=== PATIENT | male | born 1980 | race Caucasian/White ===

== ENCOUNTER 2020-08-25 16:16 | Outpatient (CLI) | payer OTHER, SELFPAY | END 2020-08-25 16:17 | disposition home or self-care (01) | LOC: ANHCOVIDVC 16:16 | PROVIDERS: PCP Family Medicine | DX: Z23 Encounter for immunization (principal) | CPT/HCPCS: 0001A; 91300 ==

== ENCOUNTER 2020-09-15 16:04 | Outpatient (CLI) | payer OTHER, SELFPAY | END 2020-09-15 16:05 | disposition home or self-care (01) | LOC: ANHCOVIDVC 16:04 | PROVIDERS: PCP Family Medicine | DX: Z23 Encounter for immunization (principal) | CPT/HCPCS: 0002A; 91300 ==

== ENCOUNTER 2023-12-10 08:44 | Day surgery (SDC) | payer OTHER, SELFPAY ==
[2023-10-28 13:36] VITALS: BMI 36.6
[2023-12-04 08:30] VITALS: BMI 34.7
--- NOTE | 2023-12-09 15:27 | WPDANESEPPF ---
Anes - Initial Pre Proc Eval Procedure: Operation Date: 12/10/23 10:30 Proposed Procedures p Screening Colonoscopy - Meliton Way MD Date/Time: 12/09/23 15:27 Surgeon: Meliton Way MD Pre Op Diagnosis: Screening for neoplasm of colon Patient Data Age: 43 Gender: M Height: 1.93 m Weight: 129.5 kg Allergies Allergy/AdvReac Type Severity Reaction Status Date / Time No Known Allergies Allergy Mild Verified 12/10/23 09:31 Home Medications Medication Instructions Recorded Confirmed Type hydroxyzine HCl 25 mg tablet 25 mg PO TID PRN anxiety #30 tabs 10/17/23 12/10/23 Rx paroxetine HCl 40 mg tablet 40 mg PO BID #180 tabs 10/17/23 12/10/23 Rx allopurinol 300 mg tablet 300 mg PO DAILY 12/04/23 12/10/23 History Patient hx anesthesia problems: none Family hx anesthesia problems: none Results Review: All pre-operative results and documents have been reviewed as part of the pre-operative evaluation. [facility] Past Medical History Medical History Benign hypertension Bilateral impacted cerumen Elevated liver enzymes Hyperlipidemia Family History Family History Father Hypertension Family history of cardiovascular disease Mother Hypertension Family history of malignant neoplasm of breast in first degree relative Social History Social History Social History: Caffeine-soda/tea Smoking status: Never smoker Second hand tobacco smoke exposure: No Alcohol intake: current Alcohol use details: occasional Substance use: never Substance use type: does not use Lack of Transportation: No Lack of Food: Never True Current Housing: I Have Housing Concerned About Future Housing: No Difficulty Paying Gas/Electric Bills: No Difficulty Paying for Meds: No Currently Unemployed: No Education: Master's Degree or Higher Living arrangements: with family Spiritual care concerns: No Anes - Eval Final PreProcedure Day of Procedure 12/09/23 15:27 Patient weight: obese Heart: regular rate and rhythm Lungs: clear to auscultation Airway: Mallampati scale class II Neurological: alert and oriented Last oral intake: >/= 8 hours ASA classification: III Emergent: no Anesthetic plan: proceed Anesthesia type and monitoring: general GIVS and standard monitoring Results Review: All pre-operative results and documents have been reviewed as part of the pre-operative evaluation. Informed Consent: The patient's anesthetic plan and its attendant risks and benefits were discussed with the patient/family/POA. Questions were solicited and answers provided to the satisfaction of the patient/family/POA.
--- NOTE | 2023-12-09 21:02 | P.HP_ITS ---
History of Present Illness History of Present Illness Consent: Risks, benefits, and alternatives have been discussed and questions answered. Patient agrees to proceed with procedure. Chief complaint: Screening for neoplasm of colon Narrative: Kai Bonilla is a 43 year old male who is referred for colon cancer screening. Review of Systems Review of Systems: All systems reviewed & are unremarkable except as noted in HPI and below PMFSH Past Medical History Medical History Benign hypertension Bilateral impacted cerumen Elevated liver enzymes Hyperlipidemia Family History Family History Father Hypertension Family history of cardiovascular disease Mother Hypertension Family history of malignant neoplasm of breast in first degree relative Social History Social History Social History: Caffeine-soda/tea Smoking status: Never smoker Second hand tobacco smoke exposure: No Alcohol intake: current Alcohol use details: occasional Substance use: never Substance use type: does not use Lack of Transportation: No Lack of Food: Never True Current Housing: I Have Housing Concerned About Future Housing: No Difficulty Paying Gas/Electric Bills: No Difficulty Paying for Meds: No Currently Unemployed: No Education: Master's Degree or Higher Living arrangements: with family Spiritual care concerns: No Meds Home Medications and Allergies Home Medications Medication Instructions Recorded Confirmed Type hydroxyzine HCl 25 mg tablet 25 mg PO TID PRN anxiety #30 tabs 10/17/23 12/10/23 Rx paroxetine HCl 40 mg tablet 40 mg PO BID #180 tabs 10/17/23 12/10/23 Rx allopurinol 300 mg tablet 300 mg PO DAILY 12/04/23 12/10/23 History Allergies Allergy/AdvReac Type Severity Reaction Status Date / Time No Known Allergies Allergy Mild Verified 12/10/23 09:31 Exam Resp: Auscultation: clear to auscultation bilaterally Cardio: Rate: regular rate Rhythm: regular rhythm GI: GI Palp: Yes Soft to palpation and No Tenderness to palpation present (GI) Assessment and Plan Assessment and plan (1) Colon cancer screening: Code(s): Z12.11 - Encounter for screening for malignant neoplasm of colon Status: Acute Assessment and Plan: Colonoscopy with possible biopsy or polypectomy or cautery or injection of subs tances.
[2023-12-10 09:40] VITALS: BP 130/82; PULSE 57; RESP 18; TEMP 36.6; O2SAT 100; BMI 34.0
[2023-12-10] MEDS: LACTATED RINGERS 1,000 ML 150 ML IV CONT (09:50)
[2023-12-10 10:35] VITALS: BP 114/78; PULSE 57; RESP 15; O2SAT 99
[2023-12-10 10:45] VITALS: BP 127/84; PULSE 55; RESP 16; O2SAT 100
[2023-12-10 10:55] VITALS: BP 120/85; PULSE 50; RESP 18; O2SAT 100
--- NOTE | 2023-12-10 11:58 | WPDANESPN ---
Anes - Prog Note Post-Op Date/Time: 12/10/23 11:58 Cardiovascular status: normal Respiratory status: normal Airway patency: baseline Mental status: baseline Post-Op hydration status: normal Vital Signs: Last Vital Signs Temp 36.6 C 12/10/23 09:40 Pulse 50 L 12/10/23 10:55 Resp 18 12/10/23 10:55 BP 120/85 12/10/23 10:55 Pulse Ox 100 12/10/23 10:55 O2 Del Method Room Air 12/10/23 10:55 Pain Score (VAS): 0 I/O: Intake & Output 12/09/23 12/10/23 12/10/23 23:59 07:59 15:59 Intake Total 400 Balance 400 Post-procedural complaints: none Patient Feedback: Patient satisfied with anesthetic care. Other Findings: Patient vital signs back to baseline. Patient denies nausea and vomiting. Patient's pain under control. Patient OK for discharge.
== END 2023-12-10 11:05 | disposition home or self-care (01) ==
PROVIDERS: PCP Family Medicine; Visit Provider Internal Medicine Gastroenterology
PROC: 0DJD8ZZ Inspection of Lower Intestinal Tract, Via Natural or Artificial Opening Endoscopic (ICD-10-PCS; CPT 45378; principal; 2023-12-10 10:30)
DX: Z12.11 Encounter for screening for malignant neoplasm of colon (principal); D12.5 Benign neoplasm of sigmoid colon
CPT/HCPCS: 45385

== ENCOUNTER 2023-12-11 09:39 | Outpatient (NON) | payer OTHER, SELFPAY | END 2023-12-11 09:40 | disposition home or self-care (01) | LOC: ANHLAB 09:40 | PROVIDERS: PCP Family Medicine; Visit Provider Internal Medicine Gastroenterology | DX: Z12.11 Encounter for screening for malignant neoplasm of colon (principal); D12.5 Benign neoplasm of sigmoid colon | CPT/HCPCS: 88305 ==

== ENCOUNTER 2024-12-01 08:10 | Outpatient (CLI) | payer OTHER, SELFPAY ==
--- OUTSIDE RECORDS SUMMARY | 2024-12-01 08:13 | XMS_ITS | Continuity of Care Document ---
Author Organization [facility] Address [address] [place] [address] Phone Care Team Providers Care Community Nurse Name Role Phone Todd Valenzuela MD Unavailable Unavailable Medications Medication Instructions Dosage Effective Dates (start - stop) Status Comments Mobic 15 mg tablet take 1 tablet by oral route every day - Active Mobic 15 mg tablet take 1 tablet by oral route every day - No Longer Active Advance Directives Directive Yes / No Effective Date File Name No Information Encounters Encounter Description Practice Location Reason(s) For Visit Diagnoses Date Provider Providers Copied on Encounter [facility] , [address] [facility], [place], [address], tel:[phone] [facility] [place] No Information 0 Bianca Brooks. [address] [place], [place], [id number] . tel:[phone] [facility] , [address], [place], [address], [place] tel:[phone] [facility] [place] Pain in right handRight hand tendonitis 0 Bianca Brooks. [address], [place], [id number] . tel:[phone] Family History Family Member Type Diagnosis Age At Onset No Information Payers Payer name Insurance type Covered green party ID Authoriza tion(s) No Information Social History Type Description Quantity Date Captured Comments Sex Male Smoking Status No Information Chief Complaint And Reason For Visit No Information Reason For Referral Reason For Referral No Information History Of Present Illness Encounter Date Complaint History Of Prese nt Illness No Information Functional Status Date Functional Assessmen t No Information Instructions Date Instruction Additional Infor mation No Information Assessments Type Assessment Date No Information Patient Care Teams Name Effective Dates (start - stop) Status Members No Information
--- OUTSIDE RECORDS SUMMARY | 2024-12-01 08:13 | XMS_ITS | Clinical Summary ---
Author Organization [facility] Address [address] [place] [address] Care Team Providers Care Dean Name Role Phone Unavailable Primary Care Provider Unavailabl e Source Comments [facility],non-owned Affiliates and Associated Physician Practices is amultiple site organization consisting of ambulatory clinics and hospital sitesin [place], [place], [place] and [place]. This disclosure is being madepursuant to the Care Everywhere program and may not contain all information available regarding this patient. Last updated 18.[facility] Allergies No known active allergies Social History Tobacco Use Types Packs/Day Years Used Date Smoking Tobacco: Never Assessed AUDIT-C Answer Date Recorded Q1: How often do you have a drink containing alc ohol? Monthly or less 08/02/2024 Q2: How many drinks containi ng alcohol do you have on a typical day when you are drinking? 1 or 2 08/02/2024 Q3: How often do you have si x or more drinks on one occasion? 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 Gender Identity Not on file Sexual Orientation Not on file Last Filed Vital Signs Vital Sign Reading Time Taken Comments Blood Pressure 103/61 08/02/2024 8:01 AM SENIOR CYTOTECHNOLOGIST Pulse 66 08/02/2024 8:01 AM SENIOR CYTOTECHNOLOGIST Temperature 36.4 C (97.6 F) 08/02/2024 3:25 AM SENIOR CYTOTECHNOLOGIST Respiratory Rate 14 08/02/2024 8:01 AM SENIOR CYTOTECHNOLOGIST Oxygen Saturation 93% 08/02/2024 8:01 AM SENIOR CYTOTECHNOLOGIST Inhaled Oxygen Concentration - - Weight 129.3 kg (285 lb) 08/02/2024 3:25 AM SENIOR CYTOTECHNOLOGIST Height 193 cm (6' 4) 08/02/2024 3:25 AM SENIOR CYTOTECHNOLOGIST Body Mass Index 34.69 08/02/2024 3:25 AM SENIOR CYTOTECHNOLOGIST Plan of Treatment Health Maintenance Due Date Last Done Comments COLOGUARD (AGES 45-75) - COL ON CA SCREENING 1978 COLON MONITORING 1978 COLONOSCOPY - COLON CA SCREENING 1978 CT COLONOGRAPHY - COLON CA SCREENING 1978 Colorectal Cancer Screening 1978 FIT - COLON CA SCREENING 1978 FLEX SIG - COLON CA SCREENING 1978 LIPID TESTING 1978 HIV SCREENING 1993 HEPATITIS C SCREENING 09/04/1996 DTAP/TDAP/TD VACCINES (1 - Tdap) 1997 HEPATITIS B VACCINE (1 of 3 - 19+ 3-dose series) 1997 COVID-19 VACCINE (1 - 2023-2 5 season) 2024 DEPRESSION SCREENING 06/24/2024 INFLUENZA VACCINE (Season Ended) 2025 ZOSTER VACCINE (1 of 2) 2028 HIB VACCINE Aged Out No longer eligi ble based on patient's age to complete this topic HPV VACCINE Aged Out No longer eligi ble based on patient's age to complete this topic MENINGOCOCCAL (Group B) VACC INE SHARED DECISION-MAKING Aged Out No longer eligibl e based on patient's age to complete this topic MENINGOCOCCAL GROUPS A/C/Y/W VACCINE Aged Out No longer eligible b ased on patient's age to complete this topic PNEUMOCOCCAL VACCINE Aged Out No long er eligible based on patient's age to complete this [place] [place] [address] [facility] [employer] * Guarantor: KAI NORTH Account Type Relation to Patient Date of Phone Billing Address Personal/Family [address] [place] [address] [place] [address] [facility] SELF PAY NO INSURANCE Member Subscriber Plan / Payer (Ef fective for All Dates) Name:Kai North Member ID:Not on file Relation to Subscriber:Not on file Name:KAI NORTH Subscriber ID:Not on file Address: [address] [place] [address] [place] [address] Payer ID:Not on file Group ID:Not on file Type:Self Pay Address: [place], [place] * Guarantor: KAI NORTH Account Type Relation to Patient Date of Phone Billing Address Personal/Family [address] [place] [address] [employer] SELF PAY NO INSURANCE Member Subscriber Plan / Payer (Ef fective for All Dates) Name:Rubingil Kai Thanh Member ID:Not on file Relation to Subscriber:Not on file Name:KAI NORTH Subscriber ID:Not on file Address: [address] [place] [address] [place] [address] Payer ID:Not on file Group ID:Not on file Type:Self Pay Address: [place], [place] [address] [employer]ability [facility]
[2024-12-22 14:45] VITALS: BMI 34.0
--- NOTE | 2024-12-22 14:45 | WPDHOMESLEEP ---
Sleep Study - Home Unattended Date of Study: 12/01/24 Ordering Provider: Willie Finn MD Interpreting Provider: Sheri Harding, DO Home Sleep Study Type: Watch PAT Height: 1.93 m Weight: 127.006 kg Body Mass Index: 34.0 Neck Circumference (inches): 20 [place]: 7 Reason for Sleep Study snoring, daytime hypersomnia Sleep History The patient is a 44-year-old male who had a sleep study ordered by his primary care physician for evaluation of sleep apnea. The patient admits to snoring loudly, excessive daytime sleepiness, interruptions in breathing while asleep, and difficulty falling asleep. He denies choking or gasping at night. He does have trouble breathing on his back. He denies morning headaches. He denies having a dry or sore mouth/throat in the morning. He denies nocturnal heartburn. He urinates twice throughout the night. He denies having difficulty staying asleep. He denies having difficulty returning to sleep if he wakes up throughout the night. He does use a hypnotic or sedative. He does feel anxious about sleep. He does feel tired or sleepy during the day. He does feel tired in the morning. He does have the urge to fall asleep during the day. He denies feeling drowsy while driving. He denies sleep paralysis, cataplexy, and hypnagogic/hypnopompic hallucinations. He does clench or grind his teeth. He denies kicking or jerking his legs excessively. He denies having a restless feeling in his legs. He goes to bed at 11:30 p.m. on workdays and at 1:30 a.m. on his days off. It takes him 30 minutes to fall asleep on workdays and 15 minutes on his days off. He gets 6 hours of sleep on workdays and 8 hours on his days off. His sleep is somewhat restorative on his days off. He denies taking any planned naps. He denies dream enactment behavior. He denies sleepwalking. He consumes 1 to 2 cups of a caffeinated beverage per day. He denies tobacco and alcohol use. He exercises 3 to 4 nights per week. [facility] Past Medical History Medical History Elevated liver enzymes Bilateral impacted cerumen Benign hypertension Hyperlipidemia Family History Family History Father Hypertension Family history of cardiovascular disease Mother Hypertension Family history of malignant neoplasm of breast in first degree relative Social History Social History Social History: Caffeine-soda/tea Smoking status: Never smoker Second hand tobacco smoke exposure: No Alcohol intake: current Alcohol use details: occasional Substance use: never Substance use type: does not use Lack of Transportation: No Lack of Food: Never True Current Housing: I Have Housing Concerned About Future Housing: No Difficulty Paying Gas/Electric Bills: No Difficulty Paying for Meds: No Currently Unemployed: No Education: Master's Degree or Higher Living arrangements: with family Spiritual care concerns: No Medications Home Medications ?Medication ?Instructions ?Recorded ?Confirmed ?Type hydroxyzine HCl 25 mg tablet 25 mg PO TID PRN anxiety #30 tabs 10/17/23 12/08/24 Rx allopurinol 300 mg tablet See Rx Instructions .Route 09/07/24 12/08/24 Rx .COMPLEX #90 tabs bupropion HCl 150 mg 24 hr tablet, 150 mg PO QAM #90 tabs 10/21/24 12/08/24 Rx extended release (Wellbutrin XL) paroxetine HCl 40 mg tablet 40 mg PO BID #180 tabs 11/10/24 12/08/24 Rx naproxen 500 mg tablet 500 mg PO BID #60 tabs 12/15/24 Rx Sleep Procedure The sleep study was completed using DoctorCT a technically adequate device with seven channels: peripheral arterial tone, actigraphy, body position, snore, respiratory movement, pulse oximetry, sleep staging, and heart rate. Prior to using the device, the patient received verbal and written instructions for its application and was provided with the help desk phone number for additional telephonic instruction with 24-hour availability of qualified personnel to answer questions. The study was scored using CMS guidelines. Sleep Architecture The total recording time is 7 hrs, 27 min. The total sleep time is 6 hrs, 47 min. Sleep latency is 24 minutes. REM latency is 92 minutes. The patient had 7 episodes of waking. Sleep architecture shows 10.0% deep sleep, 69.8% light sleep, and (as % Total Sleep Time) showed NREM (Light 69.8%; Deep 10.0%), and a 20.3% stage REM. The patient spent 58.0% of total sleep time in the supine position. Sleep efficiency was 91.05. Respiratory Analysis The overall AHI (pAHI 4%:) is 15.6. The overall AHI (pAHI 3%:) is 26.0. The central AHI is 2.6. The AHI was 26.3 in NREM and 24.7 in REM sleep. The AHI was 24.0 in Supine and 28.6 in Non-supine sleep. Percent of Samir Arambula respirations is 0.0. Oximetry Data The oxygen desaturation index (CARMEN 4%:) is 15.6. The mean saturation is 95%, and the lowest saturation is 88%. Time spent with saturation < 88% is 0.1 minutes. Snoring Profile Snoring average intensity is 44 dB. The patient snored above 45 decibels for 106.6 minutes, 26.2% of sleep time. Cardiac Profile The average pulse rate is 57 beats per minutes. The lowest pulse rate is 40 bpm. The highest pulse rate reported is 80 bpm. Atrial fibrillation was not detected. Premature beats occur 0.1 per minute. Assessment and Plan Assessment and Plan (1) RAMIN (obstructive sleep apnea): Code(s): G47.33 - Obstructive sleep apnea (adult) (pediatric) Status: Acute Assessment and Plan: The patient had an overall AHI of 15.6 with desaturation down to 88%. This is consistent with moderate sleep apnea. I recommend that the patient be prescribed AutoPAP 5-15 cm H2O, CPAP mask/filters/tubing and heated humidity. A mandibular advancement device is also an acceptable treatment option. This should be used with all episodes of sleep.? Compliance should be reviewed within 31-90 days of starting therapy for usage greater than 4 hours per night greater than 70% of the nights. The patient should be asked about symptoms such as?excessive daytime sleepiness, quality of sleep, decreased nocturia, increased?mental functioning such as memory, mood, and concentration. Data The data obtained during this sleep study is adequate for interpretation. Certification This sleep study has been reviewed by a board certified sleep medicine physician.
== END 2024-12-02 11:52 | disposition home or self-care (01) ==
LOC: ANHCSM 08:11
PROVIDERS: PCP Family Medicine; Visit Provider Family Medicine
DX: G47.33 Obstructive sleep apnea (adult) (pediatric) (principal)
CPT/HCPCS: 95800